=== PATIENT | female | born 1950 | race Caucasian/White ===

== ENCOUNTER 2017-08-28 12:41 | Emergency (ER) | payer BC, OTHER ==
[~2017-08-28] VITALS: Ht 147.3 cm; Wt 62.0 kg
[~2017-08-28 12:41] MED LIST: ASCORBIC ACID500 M3 PO; ASPIR-LOW81 M1; BIOTIN 5000MCG PO; CALCIO DEL MAR500 MG; CINNAMON500 MG PO; D-BIOTIN5 G1; DULCOLAX5 MG PO; FIBER500 MG; FISH OIL500 MG; FUROSEMIDE20 MG PO; L-ARGININE1000 MG; L-ARGININE500 MG PO; LANSOPRAZOLE30 MG; LO-DOSE ASPIRIN81 M1 PO; METAMUCIL0.52 GM PO; OCUVITE EYE +1 EACH PO; OCUVITE LUTEIN1 EACH PO; OCUVITE TABLET1 EACH PO; PREVACID30 MG PO; PROBIOTIC1 EAC1 PO; PULMICORT FLE180 MCG IH; PULMICORT180 MICROG; RED YEAST RICE600 MG PO; RESTASIS 01 DROP/0.4 BOTH EYES; REVATIO20 MG; REVATIO20 MG PO; SPIRONOLACTONE25 MG PO; STOOL SOFTENER100 MG PO; VITAMIN C1000 MG; VITAMIN D31000 UNIT; VITAMIN D32000 UNI1 PO
[2017-08-28 15:26] LABS: BASOPHIL (%) 1.1 % (0-1); BASOPHIL COUNT 0.1 K/uL (0-0.1); EOSINOPHIL (%) 3.8 % (0-5); EOSINOPHIL COUNT 0.4 K/uL (0-0.3); HEMATOCRIT 43.9 % (36.0-46.0); IMMATURE GRANULOCYTE (%) 0.4 % (0.0-0.7); LYMPHOCYTE (%) 28.3 % (15-42); LYMPHOCYTE COUNT 2.8 K/uL (1.0-2.8); MCH 29.2 PG (29.0-34.0); MCHC 34.2 G/DL (30.0-36.0); MCV 85.4 FL (83-99); MONOCYTE (%) 8.4 % (3-12); MONOCYTE COUNT 0.8 K/uL (0-0.8); NEUTROPHIL COUNT 5.6 K/uL (1.8-6.4); PLATELET COUNT 336 K/uL (156-360); RBC DIS.WIDTH-CV 13.2 % (11.8-14.6); RED BLOOD COUNT 5.14 M/uL (3.80-5.20); WHITE BLOOD COUNT 9.7 K/uL (4.1-10.2)
[2017-08-28 15:35] LABS: CHLORIDE 103 mEq/L (99-109); POTASSIUM 3.9 mEq/L (3.7-5.4); SODIUM 139 mEq/L (136-147)
[2017-08-28 15:36] LABS: GLUCOSE 95 mg/dL (70-99)
[2017-08-28 15:40] LABS: CREATININE 0.8 mg/dL (0.6-1.3); GFR ESTIMATE (CALCULATED) > 59 mL/min/; PTT 23.2 SEC (25-37)
[2017-08-28 15:41] LABS: UREA NITROGEN (BUN) 21 mg/dL (9-23)
[2017-08-28 18:55] VITALS: BP 143/57
[2017-08-28] MEDS ORDERED: PLAVIX75 MG PO (19:51)
== END 2017-08-28 20:16 | disposition home or self-care (01) ==
LOC: EME 12:41
PROVIDERS: Physician Assistant
DX: I73.9 Peripheral vascular disease, unspecified (principal); I70.0 Atherosclerosis of aorta; K57.30 Diverticulosis of large intestine without perforation or abscess without bleeding; N32.9 Bladder disorder, unspecified; I27.20 Pulmonary hypertension, unspecified; M34.9 Systemic sclerosis, unspecified; G35 Multiple sclerosis; Z79.82 Long term (current) use of aspirin; Z90.49 Acquired absence of other specified parts of digestive tract; Z90.710 Acquired absence of both cervix and uterus; Z95.828 Presence of other vascular implants and grafts; Z87.891 Personal history of nicotine dependence; Z88.0 Allergy status to penicillin; Z88.7 Allergy status to serum and vaccine; Z88.1 Allergy status to other antibiotic agents; Z88.8 Allergy status to other drugs, medicaments and biological substances
CPT/HCPCS: 74174; 80048; 85025; 85610; 85730; 93925; 93971; 99281; 99285

== ENCOUNTER → 2017-09-03 | Outpatient (CLI) | payer MEDICARE, BC ==
[~2017-09-03] MED LIST changes: +PLAVIX75 MG PO
== END | disposition home or self-care (01) ==
LOC: CDC 11:15
DX: Z01.810 Encounter for preprocedural cardiovascular examination (principal); I75.023 Atheroembolism of bilateral lower extremities; I45.10 Unspecified right bundle-branch block; R94.31 Abnormal electrocardiogram [ECG] [EKG]
CPT/HCPCS: 93000

== ENCOUNTER 2017-09-09 07:40 | Day surgery (SDC) | payer OTHER, BC ==
[~2017-09-09] VITALS: Ht 147.3 cm; Wt 61.7 kg
[2017-09-09] MEDS ORDERED: COZAAR25 MG PO (08:34)
== END 2017-09-09 13:28 | disposition home or self-care (01) ==
LOC: CATH 07:40
PROC: B41D1ZZ Fluoroscopy of Aorta and Bilateral Lower Extremity Arteries using Low Osmolar Contrast (ICD-10-PCS; principal; 2017-09-09)
DX: I75.023 Atheroembolism of bilateral lower extremities (principal); J45.909 Unspecified asthma, uncomplicated; K21.9 Gastro-esophageal reflux disease without esophagitis; F41.9 Anxiety disorder, unspecified; Z87.891 Personal history of nicotine dependence
CPT/HCPCS: C1760; C1769; C1894; J0690; J1200; J1644; J2250; J3010; S0020

== ENCOUNTER → 2017-10-15 | Outpatient (CLI) | payer OTHER, BC ==
[~2017-10-15] VITALS: Ht 149.9 cm; Wt 61.2 kg
[~2017-10-15] MED LIST changes: +ALBUTEROL2.5 MG/3 M IH; +AMBIEN10 MG PO; +ARGININE TP; +BIOTIN1000 MCG PO; +COZAAR25 MG PO; +COZAAR50 MG PO; +LASIX20 MG PO; +MUCINEX1200 MG PO; +OMEGA-31000 M1 PO; +PREDNISONE20 MG PO; +PRESERVISION A1 EAC2 PO; +TESSALON PERLE100 MG PO; +VENTOLIN HFA18 GM IH; +VITAMIN B-121000 MC3 PO; +XANAX0.25 MG PO; +[UNRECOGNIZED DRUG - OTHER] TP
== END | disposition home or self-care (01) ==
LOC: AMB 10-10 13:00
PROC: B246YZZ Ultrasonography of Right and Left Heart using Other Contrast (ICD-10-PCS; principal; 2017-10-15)
DX: I75.023 Atheroembolism of bilateral lower extremities (principal); I27.20 Pulmonary hypertension, unspecified
CPT/HCPCS: 93325; C8925; J1100; J2250; J2405